=== PATIENT | female | born 2000 ===

== ENCOUNTER 2022-08-28 09:58 | Emergency (ER) | payer OTHER ==
[~2022-08-28] VITALS: Ht 152.4 cm; Wt 59.1 kg
[~2022-08-28 09:58] MED LIST: PHENERGAN 25 TA25 MG PO
[2022-08-28 10:07] VITALS: TEMP 97.4
[2022-08-28 10:33] LABS: BASO % 0.2 % (0.0-2.0); GRAN # 6.4 K/mm3 (1.4-6.5); GRAN % 79.8 % (42.2-75.2); HEMATOCRIT 40.6 % (37.0-47.0); HEMOGLOBIN 13.8 g/dl (12.5-16.0); LYMPH # 1.1 K/mm3 (1.2-3.4); LYMPH % 14.1 % (20.0-51.0); MEAN CELL VOLUME 92 fl (80.0-100.0); MEAN CORPUSCULAR HEMOGLOBIN 31 pg (27-31); MEAN CORPUSCULAR HGB CONC 34 g/dl (33.0-37.0); MEAN PLATELET VOLUME 10.6 fl (7.4-10.4); MONO # 0.4 K/mm3 (0.1-0.6); MONO % 5.4 % (1.7-9.3); PLATELET COUNT 282 K/mm3 (130-400); REDCELL DISTRIBUTION WIDTH-CV 11.8 % (11.5-14.5)
[2022-08-28 10:44] LABS: ALBUMIN 5.2 gm/dL (3.5-5.0); BILIRUBIN,TOTAL 1.4 mg/dL (0.2-1.2); CALCIUM 10.2 mg/dL (8.4-10.2); CREATININE, serum 0.88 mg/dL (0.57-1.11); POTASSIUM 3.4 mmol/L (3.5-4.5); TOTAL PROTEIN 8.5 gm/dL (6.2-8.1)
[2022-08-28 11:07] LABS: COLLECTION METHOD CLEAN CATCH
[2022-08-28 11:16] LABS: AMORPHOUS CRYSTAL Present (NOT PRESENT); BUDDING YEAST Present (NOT PRESENT); MUCOUS Present (NOT PRESENT); PH >= 9.0 (5.0-8.5); SQUAMOUS EPITHELIAL 0-2 /hpf (0-10); URINE APPEARANCE Cloudy (CLEAR/HAZY); URINE BACTERIA None Seen /hpf (NONE SEEN); URINE COLOR Yellow (YELLOW); URINE RBC 0-2 /hpf (0-2)
[2022-08-28 11:17] LABS: URINE BLOOD Negative (NEGATIVE); URINE GLUCOSE Negative (NEGATIVE); URINE KETONE 3+ (NEGATIVE); URINE NITRATE Negative (NEGATIVE); URINE PROTEIN(semi-quant) Negative (NEGATIVE); URINE UROBILINOGEN 0.2 E.U/dL (0.2-1.0)
[2022-08-28] MEDS ORDERED: PHENERGAN25 MG RC (11:22)
[2022-08-28 11:29] LABS: TRICYCLIC ANTIDEPRESS URINE NEGATIVE
[2022-08-28] MEDS ORDERED: ZOFRAN 4MG T4 MG/TAB PO (11:55)
[2022-08-28 12:31] VITALS: BP 98/61; PULSE 75
== END 2022-08-28 12:40 | disposition home or self-care (01) ==
LOC: COL.ER 09:58
PROVIDERS: Physician Assistant
DX: R11.15 Cyclical vomiting syndrome unrelated to migraine (principal); Z28.310 Unvaccinated for COVID-19
CPT/HCPCS: J1790; J2405; J7030